=== PATIENT | male | born 1970 | race Caucasian/White ===

== ENCOUNTER 2018-11-13 19:29 | Emergency (ER) | payer SELFPAY ==
[2018-11-13 19:38] VITALS: BP 144/79; PULSE 94; RESP 18; TEMP 98.3; O2SAT 97
[2018-11-13] MEDS ORDERED: Oxycodone/Acetaminophen 5/325 mg Tab PO STA (20:12)
[2018-11-13] MEDS ORDERED: Oxycodone/Acetaminophen 5/325 mg Tab ONE (20:27)
--- NOTE | 2018-11-13 20:32 | ED PDOC ---
HPI: Dental Pain/Injury Chief Complaint (Nursing): Dental Pain Past Medical History Vital Signs: Last Vital Signs Temp 98.3 F 11/13/18 19:35 Pulse 94 H 11/13/18 19:35 Resp 18 11/13/18 19:35 BP 144/79 11/13/18 19:35 Pulse Ox 97 11/13/18 19:35 - Immunization History Hx Tetanus Toxoid Vaccination: No Hx Influenza Vaccination: No Hx Pneumococcal Vaccination: No - Allergies Allergies/Adverse Reactions: Allergies Allergy/AdvReac Type Severity Reaction Status Date / Time ibuprofen [From Motrin] Allergy RASH Verified 11/13/18 19:35 ketorolac [From Toradol] Allergy RASH Verified 11/13/18 19:35 levofloxacin [From Levaquin] Allergy RASH Verified 11/13/18 19:35 Penicillins Allergy RASH Verified 11/13/18 19:35 povidone-iodine Allergy RASH Verified 11/13/18 19:35 [From Betadine] soap [From Betadine] Allergy RASH Verified 11/13/18 19:35 tramadol Allergy RASH Verified 11/13/18 19:35 - ECG O2 Sat by Pulse Oximetry: 97 Disposition - Clinical Impression Clinical Impression: Pain, dental - Patient ED Disposition Is Patient to be Admitted: No Counseled Patient/Family Regarding: Diagnosis, Need For Followup - Disposition Disposition: Routine/Home Condition: GOOD Instructions: Dental Pain Print Language: SAMOAN - POA Present On Arrival: None
--- NOTE | 2018-11-13 20:36 | ED PDOC ---
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 Patient [id number] that last night, 19.5x hours prior to arrival, the pain increased, and this morning 13.5x hours prior to arrival the pain worsened. Patient states that he had an abscess drainage (of the mouth) 4x days ago, and is currently on a course of clindomycin (10x dy) and is currently on day 8. Patient states that he also has a slight increase in mouth swelling, but definitely better than 4x days ago when he was seen by his oral surgeon. Patient states that he has a tooth extraction scheduled for 2x days from today. Patient further reports that he is currently on pain management and takes percocet 10/325 mg Q6H PRN as needed, prescribed by his strategic consultant. Patient states that he ran out of percocet 10/325 and is scheduled to see his strategic consultant in 2x days, but is requesting percocet to get through today. Patient states that he took tylenol 500 mg 2x tabs today 13.5x hours prior to arrival, and tylenol 500 mg 1x tab 10x hours prior to arrival with minimal relief. Patient denies having fevers. PMD: None provided Past Medical History Reviewed: Historical Data, Nursing Documentation, Vital Signs Vital Signs: Last Vital Signs Temp 98.3 F 11/13/18 19:35 Pulse 94 H 11/13/18 19:35 Resp 18 11/13/18 19:35 BP 144/79 11/13/18 19:35 Pulse Ox 97 11/13/18 19:35 SUYAPA Report Viewed: Yes - Medical History PMH: Deep Vein Thrombosis, Sickle Cell Disease (sickle cell trait) - Family History Family History: States: No Known Family Hx - Social History Current smoker - smoking cessation education provided: No Alcohol: None Drugs: Denies - Immunization History Hx Tetanus Toxoid Vaccination: No Hx Influenza Vaccination: No Hx Pneumococcal Vaccination: No - Allergies Allergies/Adverse Reactions: Allergies Allergy/AdvReac Type Severity Reaction Status Date / Time ibuprofen [From Motrin] Allergy RASH Verified 11/13/18 19:35 ketorolac [From Toradol] Allergy RASH Verified 11/13/18 19:35 levofloxacin [From Levaquin] Allergy RASH Verified 11/13/18 19:35 Penicillins Allergy RASH Verified 11/13/18 19:35 povidone-iodine Allergy RASH Verified 11/13/18 19:35 [From Betadine] soap [From Betadine] Allergy RASH Verified 11/13/18 19:35 tramadol Allergy RASH Verified 11/13/18 19:35 Review of Systems ROS Statement: Except As Marked, All Systems Reviewed And Found Negative Constitutional: Negative for: Fever ENT: Positive for: Other (left upper mouth pain and slight swelling) Physical Exam - Reviewed Nursing Documentation Reviewed: Yes Vital Signs Reviewed: Yes - Physical Exam Appears: Positive for: Well, Non-toxic, No Acute Distress Head Exam: Positive for: ATRAUMATIC, NORMOCEPHALIC Skin: Positive for: Normal Color, Warm, Dry Eye Exam: Positive for: Normal appearance ENT: Positive for: Other (slight swelling to the left upper border of the lip. (+) tenderness to left upper lip, some tenderness to left lower lip. (-) redness. (+) missing teeth to left side of mouth.) Neurological/Psych: Positive for: Awake, Alert, Oriented (3x) - ECG O2 Sat by Pulse Oximetry: 97 (RA) Pulse Ox Interpretation: Normal Medical Decision Making Medical Decision Makin:05 Initial impression: 48 year old male with mouth pain Initial plan: 2 percocet 5/325 given in ED, with no prescription for home. Patient advised to call strategic consultant tomorrow for further pain management. Patient is medically stable, and requires no further treatment in the ED at this time. Patient will be discharged home. Counseling was provided and all questions were answered regarding diagnosis and need for follow up with oral surgeon and strategic consultant as scheduled. There is agreement to discharge plan. Return if symptoms persist or worsen ScribeAttestation: Documented byElsa Gunderson, acting as a scribe for Candace Cha APN. Provider ScribeAttestation: All medical record entries made by the Scribe were at my direction and personally dictated by me. I have reviewed the chart and agree that the record accurately reflects my personal performance of the history, physical exam, medical decision making, and the department course for this patient. I have also personally directed, reviewed, and agree with the discharge instructions and disposition. Disposition - Clinical Impression Clinical Impression: Pain, dental - Disposition Disposition: Routine/Home Disposition Time: 20:15 Condition: GOOD Instructions: Dental Pain Print Language: SPANISH
== END 2018-11-13 21:28 | disposition home or self-care (01) ==
LOC: H.ER 19:29
DX: K08.89 Other specified disorders of teeth and supporting structures (principal); D57.3 Sickle-cell trait; Z86.718 Personal history of other venous thrombosis and embolism; Z88.0 Allergy status to penicillin; Z88.8 Allergy status to other drugs, medicaments and biological substances